=== PATIENT | female | born 1950 | race Caucasian/White ===

== ENCOUNTER 2019-05-26 01:55 | Inpatient (IN) ==
[2019-05-26] MEDS ORDERED: ASPIRIN 325 MG TABLET PO STA (02:19)
[2019-05-26] MEDS ORDERED: HYDROmorphone 2 MG/1 ML VIAL IV STA (02:19)
[2019-05-26] MEDS ORDERED: ALUM/MAG/SIMETH/LIDO VISC 1:1 30 ML BOTTLE PO STA (02:19)
[2019-05-26] MEDS ORDERED: NITROGLYCERIN 2% OINT 1 INCH/GM PACK TOP STA (02:19)
[2019-05-26] MEDS ORDERED: ONDANSETRON 4 MG/2 ML VIAL IV STA (02:19)
[2019-05-26 02:59] LABS: Basophils % 0.4 % (0.0-0.8); Eosinophils % 0.1 % (0.00-10.9); Hematocrit 33.5 VOL% (35.7-47.0); Hemoglobin 10.7 GM/DL (12.0-16.0); Immature Granulocytes % 0.9 %; Immature Granulocytes Absolute 0.06 #; Lymphocytes # 1.9 10*3/uL (1.4-4.0); Lymphocytes % 26.5 % (21.3-54.2); Mean Corpuscular HGB Conc 31.9 GM/DL (32-36); Mean Corpuscular Volume 92.3 FL (87-102); Mean Platelet Volume 10.2 FL (9.6-12.0); Monocytes % 9.7 % (1.7-12.7); Neutrophils % 62.4 % (38.7-73.9); Platelet Count 256 T/CUMM (130-400); Red Blood Count 3.63 MC/CUMM (3.8-5.5); Red Cell Distribution Width 13.6 % (9.3-17.3)
[2019-05-26 03:08] LABS: Alanine Aminotransferase 37 U/L (13-56); Albumin 3.7 G/DL (3.4-5.0); Alkaline Phosphatase 121 U/L (45-117); Aspartate Amino Transferase 29 U/L (0-37); Bilirubin,Total < 0.39 MG/DL (0.2-1.0); Blood Urea Nitrogen 23 MG/DL (7-18); Calcium 9.2 MG/DL (8.5-10.1); Estimated Glom Filtration Rate 48 ML/MIN; Glucose 125 MG/DL (74-106); Osmolality,Calculated 277.8 MOS/KG (273-304); Total Protein 7.4 G/DL (6.4-8.3)
[2019-05-26 03:15] LABS: PT Patient Result 10.3 SECS (9.8-11.9)
[2019-05-26] MEDS ORDERED: ENOXAPARIN 100 MG/ML SYRINGE SUBCUT STA (03:22)
[2019-05-26] MEDS ORDERED: ONDANSETRON 4 MG/2 ML VIAL IV PRN (03:43)
[2019-05-26 05:31] LABS: Basophils % 0.4 % (0.0-0.8); Eosinophils % 0.1 % (0.00-10.9); Hematocrit 32.4 VOL% (35.7-47.0); Immature Granulocytes % 0.6 %; Immature Granulocytes Absolute 0.04 #; Lymphocytes # 1.4 10*3/uL (1.4-4.0); Lymphocytes % 19.7 % (21.3-54.2); Mean Corpuscular HGB Conc 30.9 GM/DL (32-36); Mean Corpuscular Volume 93.6 FL (87-102); Mean Platelet Volume 9.4 FL (9.6-12.0); Monocytes % 8.1 % (1.7-12.7); Neutrophils % 71.1 % (38.7-73.9); Platelet Count 231 T/CUMM (130-400); Red Blood Count 3.46 MC/CUMM (3.8-5.5); Red Cell Distribution Width 13.6 % (9.3-17.3); White Blood Count 7.2 T/CUMM (4-12)
[2019-05-26 05:51] LABS: Band Neutrophils 4 % (0-10); Hypochromasia 1+; Lymphocytes 17 % (20-55); Platelet Estimate Adequate; Segmented Neutrophils 71 % (50-85); Total Cells Counted 100
[2019-05-26 05:53] LABS: Calcium 8.5 MG/DL (8.5-10.1); Osmolality,Calculated 279.7 MOS/KG (273-304); Thyroid Stimulating Hormone 1.82 uIU/ml (0.358-3.74)
[2019-05-26] MEDS ORDERED: CLOPIDOGREL 75 MG TABLET PO SCH (09:00)
[2019-05-26] MEDS ORDERED: ENOXAPARIN 40 MG/0.4 ML SYRINGE SUBCUT SCH (09:00)
[2019-05-26 09:30] LABS: Risk Ratio 2.68; VLDL CHOLESTEROL 22.6 MG/DL
[2019-05-26] MEDS ORDERED: NITROGLYCERIN 2% OINT 1 INCH/GM PACK TOP SCH ×2 (09:30→12:00)
[2019-05-26] MEDS ORDERED: ENOXAPARIN 80 MG/0.8 ML SYRINGE SUBCUT SCH (10:00)
[2019-05-26] MEDS ORDERED: SODIUM CHLORIDE 0.45% 1,000 ML IV SCH (10:00)
[2019-05-26] MEDS: METOPROLOL TARTRATE 25 MG TABLET PO SCH ×2 (10:11→22:46)
[2019-05-26] MEDS: PANTOPRAZOLE 40 MG TABLET PO SCH (10:11)
[2019-05-26] MEDS: ASPIRIN EC 81 MG TABLET PO SCH (10:11)
[2019-05-26] MEDS ORDERED: NITROGLYCERIN SL 0.4 MG TABLET SL ONE (10:28)
[2019-05-26] MEDS ORDERED: NITROGLYCERIN SL 0.4 MG TABLET SL PRN (10:40)
[2019-05-26] MEDS: NITROGLYCERIN 2% OINT 1 INCH/GM PACK TOP SCH ×3 (11:04→22:48)
[2019-05-26] MEDS ORDERED: DIAZEPAM 5 MG TABLET PO ONE (12:25)
[2019-05-26] MEDS ORDERED: MAGNESIUM SULF RIDER 2 GM in PREMIX 1 EACH IV PRN (12:25)
[2019-05-26] MEDS ORDERED: POTASSIUM CHLORIDE RIDER 10 MEQ in PREMIX 1 EACH IV PRN (12:25)
[2019-05-26] MEDS ORDERED: diphenhydrAMINE CAP 25 MG CAPSULE PO ONE (12:25)
[2019-05-26] MEDS ORDERED: LIDOCAINE 1% 20 ML VIAL ONE (12:55)
[2019-05-26] MEDS ORDERED: MIDAZOLAM 2 MG/2 ML VIAL ONE (13:05)
[2019-05-26] MEDS ORDERED: fentaNYL 100 MCG/2 ML VIAL ONE (13:06)
[2019-05-26] MEDS ORDERED: TIROFIBAN 5,000 MCG/100 ML PREMIX IV ONE (13:30)
[2019-05-26] MEDS ORDERED: HEPARIN 5,000 UNIT/1 ML VIAL ONE (13:31)
[2019-05-26] MEDS ORDERED: TIROFIBAN 5,000 MCG/100 ML PREMIX IV SCH (13:36)
[2019-05-26] MEDS ORDERED: TICAGRELOR 90 MG TABLET ONE (14:43)
[2019-05-26] MEDS ORDERED: ACETAMINOPHEN/CODEINE 300-30 MG TABLET PO PRN (15:20)
[2019-05-26] MEDS ORDERED: fentaNYL 100 MCG/2 ML VIAL IV PRN (15:20)
[2019-05-26] MEDS: SODIUM CHLORIDE 0.45% 1,000 ML IV SCH (15:50)
[2019-05-26] MEDS: cilostazoL 50 MG TABLET PO SCH ×2 (15:55→22:46)
[2019-05-26 16:57] LABS: CKMB % 10.3 %
[2019-05-26 17:05] LABS: Troponin I 19.3 NG/ML (0.00-0.045)
[2019-05-26] MEDS ORDERED: EZETIMIBE 10 MG TABLET PO SCH (21:00)
[2019-05-26] MEDS: TICAGRELOR 90 MG TABLET PO SCH (22:46)
[2019-05-27] MEDS: SODIUM CHLORIDE 0.45% 1,000 ML IV SCH
[2019-05-27 01:19] LABS: CKMB % 5.3 %
[2019-05-27 01:23] LABS: Troponin I 22.4 NG/ML (0.00-0.045)
[2019-05-27] MEDS: NITROGLYCERIN 2% OINT 1 INCH/GM PACK TOP SCH (04:39)
[2019-05-27 05:28] LABS: Basophils % 0.2 % (0.0-0.8); Eosinophils % 0.5 % (0.00-10.9); Hematocrit 30.1 VOL% (35.7-47.0); Hemoglobin 9.6 GM/DL (12.0-16.0); Immature Granulocytes % 0.7 %; Immature Granulocytes Absolute 0.03 #; Lymphocytes # 1.3 10*3/uL (1.4-4.0); Lymphocytes % 31.1 % (21.3-54.2); Mean Corpuscular HGB Conc 31.9 GM/DL (32-36); Mean Corpuscular Volume 92.3 FL (87-102); Mean Platelet Volume 9.6 FL (9.6-12.0); Monocytes % 16.6 % (1.7-12.7); Neutrophils % 50.9 % (38.7-73.9); Platelet Count 239 T/CUMM (130-400); Red Blood Count 3.26 MC/CUMM (3.8-5.5); Red Cell Distribution Width 13.9 % (9.3-17.3); White Blood Count 4.1 T/CUMM (4-12)
[2019-05-27 05:55] LABS: Band Neutrophils 9 % (0-10); Eosinophils 1 % (0-10); Lymphocytes 35 % (20-55); Segmented Neutrophils 47 % (50-85); Total Cells Counted 100
[2019-05-27 05:56] LABS: Calcium 8.3 MG/DL (8.5-10.1); Hypochromasia 1+; Osmolality,Calculated 278.5 MOS/KG (273-304); Ovalocytes Slight; Platelet Estimate Adequate
[2019-05-27] MEDS ORDERED: POTASSIUM CHLORIDE 20 MEQ TABLET PO PRN (07:17)
[2019-05-27 08:21] LABS: CKMB % 4.3 %
[2019-05-27 08:24] LABS: Troponin I 19.1 NG/ML (0.00-0.045)
[2019-05-27 08:33] LABS: CKMB % 4.6 %
[2019-05-27 08:34] LABS: Troponin I 20.3 NG/ML (0.00-0.045)
[2019-05-27] MEDS: cilostazoL 50 MG TABLET PO SCH (08:43)
[2019-05-27] MEDS: METOPROLOL TARTRATE 25 MG TABLET PO SCH (08:43)
[2019-05-27] MEDS: ASPIRIN EC 81 MG TABLET PO SCH (08:43)
[2019-05-27] MEDS: PANTOPRAZOLE 40 MG TABLET PO SCH (08:43)
[2019-05-27] MEDS: TICAGRELOR 90 MG TABLET PO SCH (08:43)
[2019-05-27 11:58] VITALS: BP 124/58
== END 2019-05-27 15:25 | disposition home or self-care (01) | DRG 247 ==
LOC: N.EDINP 01:55 → N.ED 01:55 → N.TELEN 04:13
PROVIDERS: ADMIT Internal Medicine; ATTEND Internal Medicine Cardiovascular Disease
PROC: CLCCHCL (ICD-10-PCS; 2019-05-26 13:15)